=== PATIENT | female | born 1950 | race Caucasian/White ===

== ENCOUNTER 2017-03-10 13:13 | Emergency (ER) | payer OTHER ==
[~2017-03-10] VITALS: Ht 165.1 cm; Wt 89.9 kg
[~2017-03-10 13:13] MED LIST: AMARYL4 MG PO; CATAPRES0.1 MG PO; INVOKANA100 MG PO; LIPITOR20 MG PO; LO-DOSE ASPIRIN81 M1 PO; LOTREL 5/101 CAPSULE PO
[2017-03-10] MEDS ORDERED: ZYRTEC10 M3 PO (13:45)
[2017-03-10] MEDS ORDERED: MEDROL DOSEPAK4 MG PO (13:45)
[2017-03-10 13:58] VITALS: BP 131/95
== END 2017-03-10 14:01 | disposition home or self-care (01) ==
LOC: EME 13:13
DX: L25.9 Unspecified contact dermatitis, unspecified cause (principal); L53.9 Erythematous condition, unspecified; R13.10 Dysphagia, unspecified; F17.200 Nicotine dependence, unspecified, uncomplicated; Z79.82 Long term (current) use of aspirin; E11.9 Type 2 diabetes mellitus without complications; I10 Essential (primary) hypertension; Z90.49 Acquired absence of other specified parts of digestive tract
CPT/HCPCS: 99281; 99284

== ENCOUNTER 2017-10-02 22:08 | Emergency (ER) | payer OTHER ==
[~2017-10-02] VITALS: Ht 165.1 cm; Wt 93.3 kg
[~2017-10-02 22:08] MED LIST changes: +MEDROL DOSEPAK4 MG PO; +ZYRTEC10 M3 PO
[2017-10-03] MEDS ORDERED: NAPROSYN375 MG PO (00:01)
[2017-10-03] MEDS ORDERED: NORCO 5/3251 TABLET PO (00:01)
[2017-10-03 00:08] VITALS: BP 152/76
== END 2017-10-03 00:09 | disposition home or self-care (01) ==
LOC: EME 22:08
PROC: 3E0U3BZ Introduction of Anesthetic Agent into Joints, Percutaneous Approach (ICD-10-PCS; principal; 2017-10-02)
DX: M75.91 Shoulder lesion, unspecified, right shoulder (principal); I10 Essential (primary) hypertension; F17.200 Nicotine dependence, unspecified, uncomplicated; Z85.9 Personal history of malignant neoplasm, unspecified; Z79.82 Long term (current) use of aspirin
CPT/HCPCS: 73030; 99281; 99284; S0020